=== PATIENT | male | born 1935 | race Caucasian/White ===

== ENCOUNTER → 2020-11-06 | Outpatient (CLI) | payer MEDICARE, BC ==
--- NOTE | 2020-11-07 11:28 | MR ---
EXAMINATION TYPE: MR lumbar spine wo con DATE OF EXAM: 11/06/2020 COMPARISON: None HISTORY: Low back pain radiating into buttocks and cyrus legs CONTRAST: 0 mL intravenous Gadavist. TECHNIQUE: Multiplanar, multisequence images of the lumbar spine were acquired. FINDINGS: Cord terminates at the L1 level. L5-S1: There is disc space narrowing through the L5-S1 level. Broad-based disc bulge is present with anterior thecal sac contact. No spinal canal stenosis is present. Neural foramen are patent and may b e some mild right facet hypertrophy with ligamentum flavum laxity. L4-L5: Broad-based disc bulge is present. Facet hypertrophy with left posterior lateral thecal sac co mpression is present. No spinal canal stenosis present. Neural foramen has some mild infra foraminal narrowing. No stenosis is evident. L3-L4: Mild disc bulge has anterior thecal sac flattening. No AP spinal canal stenosis present. There is facet hypertrophy and ligamentum flavum laxity causing lateral canal narrowing. L2-L3: Mild disc bulge has anterior thecal sac contact. No AP spinal canal stenosis present. Facet hy pertrophy with ligamentum flavum laxity is posterior lateral thecal sac compression. L1-L2: No significant disc bulge or disc herniation. No spinal canal stenosis. No foraminal stenosi s. T12-L1: No significant disc bulge or disc herniation. No spinal canal stenosis. No foraminal stenos is. Left renal cysts are evident at the edge of the [id number]. IMPRESSION: 1. Disc bulging L2-3 through L5-S1 has minimal to mild anterior thecal sac compression. 2. Multilevel facet hypertrophy is greatest at L3-4. Some mild lateral canal narrowing may be present
== END | disposition home or self-care (01) ==
LOC: RADMRIMAIN 11:00
PROVIDERS: ATTEND Orthopaedic Surgery
DX: M51.26 Other intervertebral disc displacement, lumbar region (principal); M47.816 Spondylosis without myelopathy or radiculopathy, lumbar region
CPT/HCPCS: 72148

== ENCOUNTER → 2024-09-26 | Outpatient (CLI) | payer MEDICARE, BC ==
[2024-09-26 13:35] VITALS: BP 159/84; PULSE 70; RESP 16
--- NOTE | 2024-09-26 14:53 | P.PAINPG ---
PQRS Measure Charge Sheet Comment: HISTORY OF PRESENT ILLNESS: A 88 yr old male w at side as a referral from [facility] presents today w severe and chronic LBP > 5 yrs secondary to radiculopathy, spondylosis and facet arthropathy without myelopathy for evaluation. Pt states pain level is provoked at 9 /10 in intensity, intermittent, localized in the lower lumbar spine, predominantly axial, achy in character w occasional shooting pain towards the hips. Pain is provoked by standing/ walking for periods > 10 min. Pain is alleviated by PT x 6 wks which ended in 2019, physician guided home stretches daily since 2019, heat, medications (Ibu), topical Hemp, repositioning and rest . Oswestry axial pain score at 36. PMH: OA, HTN, Hypothyroidism, Vitamin D Deficiency PSH: Cardiac Valve Replacement, Fall through roof in 1995 w L sided fractures SH: Neg x3. . FH: Mo- CAD. Fa- DM, CAD All: See list Meds: See list incl ASA, Ibu, Celebrex REVIEW OF ORGAN SYSTEMS: CONSTITUTIONAL: No fevers or chills. No recent weight loss. NEUROLOGICAL: + numbness and tingling along the distal extremities. No seizure disorders or headaches. MUSCULOSKELETAL: + pain PSYCHIATRIC: Denies current depression or suicidal thoughts. Physical Examinations : Constitutional : Cooperative , not in acute distress . Neurologic : Cranial nerve II to XII intact. No focal neurological deficits. Psychiatric : alert & oriented x 3. Matching mood & appropriate affect. Judgment & insight intact. Musculoskeletal : Cervical Spine Motor strength in the deltoid and isidra ps: Normal right side. Normal Left side Motor strength biceps and the wrist extensors: Normal right side . Normal left side Motor strength in the triceps muscle: Normal right side. Normal left side Deep tendon reflexes: Normal at the biceps. Normal at Brachioradialis. Normal at triceps Vertebral body tenderness to deep palpation over Cervical facet loading test: positive bilaterally Spurling test: positive bilaterally Neck distraction test: positive bilaterally Gosia sign: positive bilaterally Lumbar spine Motor strength lower extremities ,thigh and legs 5/5 Right side , 5/5 Left side Deep tendon reflexes : Normal Knee Jerk. Normal Ankle Jerk Vertebral body tenderness over Reyna Test positive Taut bands w twitch response over BL L2-S1 Lumbar facet Loading Test: positive Right / positive Left Range of motion of the lumbar spine Flexion 30 degrees, extension 10 degrees Straight Leg Raise test: Left/ Right positive at degrees Edgard test: positive right / positive left. Severe tenderness over the Sacroiliac joint on the Right / Left sides Gaenslen test: positive bilaterally Seated flexion test: positive bilaterally. Sacral spine : Severe tenderness over the Sacroiliac joint: right side / left side Range of motion: Flexion of the lumbar spine <60 degrees Range of motion: Extension of the lumbar spine <20 degrees Gaenslen's Test positive Edgard test: positive right side / left side Thigh Thrust Test Sacral Thrust Test Imaging: MRI non contrast lumbar spine from reviewed Assessment/ Plan : L4-S1 Spondylosis Recommendation of BL TPIs L2-S1 #1. Risks, benefits of procedure discussed and patient verbalized understanding. All questions answered. I have spent greater than 30 minutes on patient care today. Dr Condon was a vailable by phone for the evaluation of this patient. The time was used to review the medical records including relevant urine studies and Prescription history (MAPs), review of the available imaging, evaluation and examination of the patient, coordination of care with the medical staff and if applicable referring physicians, as well as creation of the medical record Controlled Substance Measures - Controlled Substance Measures Is patient prescribed a controlled substance at discharge?: No
== END ==
LOC: PNWHC3 11:53
PROVIDERS: ATTEND Specialist
DX: M47.27 Other spondylosis with radiculopathy, lumbosacral region (principal)
CPT/HCPCS: 99202

== ENCOUNTER 2024-09-29 12:22 | Day surgery (SDC) | payer MEDICARE, BC ==
[2024-09-29 13:42] VITALS: RESP 18; TEMP 97
[2024-09-29] MEDS ORDERED: ROPIVACAINE 5MG/ML 20ML VIAL ONE (14:05)
[2024-09-29] MEDS ORDERED: methylPREDNISolone ACETATE 40 MG/ML 1 ML VIAL ONE (14:05)
--- NOTE | 2024-09-29 14:17 | P.PCN ---
Description of Procedure: Preprocedure diagnosis. Myofascial pain. Myofascial trigger point. Postprocedure diagnosis. As above. Procedure done. Myofascial trigger point injection with local anesthetics and steroid at 4 points. Anesthesia. Ethyl chloride spray. Local anesthetic infiltration. In the OR continuous pulse ox, EKG, blood pressure, and verbal communication was maintained with the patient. Blood loss. None. Indication. Discussed with the patient procedure, alternatives and possible complications which may include infection, bleeding, nerve damage, aggravation of pain. Patient understands and all questions were answered. Procedure note. After getting consent patient in the procedure area. Most tender points were identified and marked. A 25-gauge needle attached to syringe was introduced at the trigger points and after negative aspiration 5 mL solution are injected at each trigger point. I injected 4 trigger points in bilateral lumber paraspinal muscles. Total solution consists of 19 ml 0.5%Ropivacaine mixed with 80 mg Depomedrol. Disposition. Patient tolerated the procedure well. No complication. Discharged home in stable condition.
[2024-09-29 14:44] VITALS: BP 141/75; PULSE 67
== END 2024-09-29 14:56 | disposition home or self-care (01) ==
LOC: ORPAIN 12:22
PROVIDERS: ATTEND Pain Medicine Interventional Pain Medicine
DX: M79.18 Myalgia, other site (principal); Z79.82 Long term (current) use of aspirin
CPT/HCPCS: 20553